=== PATIENT | female | born 1985 | race Caucasian/White ===

== ENCOUNTER 2019-04-23 12:58 | Emergency (ER) | payer MEDICARE, OTHER ==
[~2019-04-23] VITALS: Ht 152.4 cm; Wt 147.3 kg
[2019-04-23] MEDS ORDERED: ARIP2 PO (13:38)
[2019-04-23] MEDS ORDERED: ALBU8HFA IH (13:38)
[2019-04-23] MEDS ORDERED: ESCI10TA PO (13:38)
[2019-04-23] MEDS ORDERED: BUSP5TAB20 PO (13:38)
[2019-04-23 13:59] LABS: AMPHET/METH SCREEN,URINE NEGATIVE (NEGATIVE); BARBITURATE SCREEN, URINE NEGATIVE (NEGATIVE); BENZODIAZEPINES SCREEN,URINE NEGATIVE (NEGATIVE); CANNABINOID SCREEN,URINE NEGATIVE (NEGATIVE); COCAINE SCREEN,URINE NEGATIVE (NEGATIVE); METHADONE SCREEN, URINE NEGATIVE (NEGATIVE); OPIATE SCREEN,URINE NEGATIVE (NEGATIVE)
[2019-04-23 14:00] LABS: PHENCYCLIDINE SCREEN,URINE NEGATIVE (NEGATIVE)
[2019-04-23 15:04] VITALS: BP 142/81
== END 2019-04-23 15:06 | disposition home or self-care (01) ==
LOC: EMS 13:01
DX: F32.9 Major depressive disorder, single episode, unspecified (principal); J45.909 Unspecified asthma, uncomplicated; F41.9 Anxiety disorder, unspecified; Z79.899 Other long term (current) drug therapy; Z88.5 Allergy status to narcotic agent

== ENCOUNTER 2024-03-16 19:18 | Emergency (ER) | payer MEDICARE, MEDICAID ==
[~2024-03-16] VITALS: Ht 162.6 cm; Wt 127.0 kg
[~2024-03-16 19:18] MED LIST: ALBU18HF12 IH; ARIP2TAB27 PO; BUSP5TAB20 PO; ESCI-8 PO
[2024-03-16 19:34] VITALS: BP 117/79; PULSE 117; RESP 18; TEMP 98
[2024-03-16 20:57] LABS: GLUCOMETER DEV NAME(LOC) ER.7; GLUCOSE,POINT OF CARE 208 MG/DL (70-110)
[2024-03-16 22:38] LABS: BASOPHILS % (AUTO) 0.3 % (0.0-2.0); EOSINOPHILS % (AUTO) 0.3 % (1.0-6.0); HEMATOCRIT 43.2 % (36-46); HEMOGLOBIN 14.4 g/dL (12.0-16.0); LYMPHOCYTES # (AUTO) 0.9 K/uL (1.0-4.8); LYMPHOCYTES % (AUTO) 6.9 % (22.0-44.0); MEAN CORPUSCULAR HEMOGLOBIN 26.6 pg (26.0-34.0); MEAN CORPUSCULAR HGB CONC 33.4 G/dL (31.0-37.0); MEAN CORPUSCULAR VOLUME 80 fL (80-100); MONOCYTES # (AUTO) 0.6 K/uL (0.1-1.0); MONOCYTES % (AUTO) 4.6 % (2.0-9.0); NEUTROPHILS # (AUTO) 10.9 K/uL (1.8-7.7); PLATELET COUNT (AUTO) 319 K/uL (150-450); RED BLOOD CELL COUNT(AUTO) 5.43 MIL/uL (4.00-5.20); RED CELL DISTRIBUTION WIDTH 13.7 % (11.5-14.5); WHITE BLOOD COUNT (AUTO) 12.4 K/uL (4.5-11.0)
[2024-03-16 22:39] LABS: NEUTROPHILS % (AUTO) 87.9 % (40.0-70.0)
[2024-03-16] MEDS ORDERED: METF-1211 PO (22:50)
[2024-03-16] MEDS ORDERED: insulin SQ (22:50)
[2024-03-16 22:54] LABS: ANION GAP 13 mmol/L (8-16); CALCIUM, TOTAL 8.6 mg/dL (8.8-10.5); CARBON DIOXIDE 22 mmol/L (22-29); CHLORIDE 101 mmol/L (98-107); CREATININE 0.97 mg/dL (0.60-1.30); GLOMERULAR FILTR. RATE CALC > 60 mL/min (>60); GLUCOSE,RANDOM 188 mg/dL (70-110); POTASSIUM 3.4 mmol/L (3.5-5.1); SODIUM SERUM 136 mmol/L (136-145); UREA NITROGEN, BLOOD 13 mg/dL (7-18)
[2024-03-16 23:03] LABS: HCG,QUANTITATIVE < 1 mIU/mL (0-6); LIPASE 34 U/L (16-77)
[2024-03-17] MEDS ORDERED: ACET-66 PO (00:22)
[2024-03-17] MEDS ORDERED: ONDA-104 PO (00:22)
[2024-03-17] MEDS ORDERED: DIPH-1130 PO (00:22)
[2024-03-17] MEDS: POTASSIUM CHLORIDE 20 MEQ ER TABLET PO ONE (00:32)
== END 2024-03-17 00:42 | disposition home or self-care (01) ==
LOC: EMS 19:18
DX: K52.9 Noninfective gastroenteritis and colitis, unspecified (principal); R11.10 Vomiting, unspecified; J45.909 Unspecified asthma, uncomplicated; R73.9 Hyperglycemia, unspecified; F17.210 Nicotine dependence, cigarettes, uncomplicated; Z88.5 Allergy status to narcotic agent; Z79.4 Long term (current) use of insulin; Z79.899 Other long term (current) drug therapy
CPT/HCPCS: 80048; 82962; 83690; 84702; 85025; 99283